=== PATIENT | female | born 1940 ===

== ENCOUNTER 2018-04-06 08:29 | Day surgery (SDC) | payer MEDICARE, OTHER ==
[~2018-04-06] VITALS: Ht 162.6 cm; Wt 80.2 kg
[~2018-04-06 08:29] MED LIST: 8 Hour C500 MG; Aspirin EC81 MG PO; ESCI10 PO; METPRE4DP PO
[2018-04-06] MEDS ORDERED: COLLAGEN HYDROLY1 GM PO (09:03)
[2018-04-06] MEDS ORDERED: CYAN500 PO (09:04)
[2018-04-06] MEDS ORDERED: CENTRUM FLAVOR1 EAC1 PO (09:04)
[2018-04-06] MEDS ORDERED: Vitamin E200 UNIT PO (09:04)
[2018-04-06] MEDS ORDERED: FISH OIL 1,0001 EAC2 PO (09:05)
[2018-04-06] MEDS ORDERED: Vitamin C100 M1 PO (09:05)
[2018-04-06] MEDS ORDERED: ZINC15 PO (09:06)
[2018-04-06] MEDS ORDERED: CHOL10002 PO (09:06)
[2018-04-06] MEDS ORDERED: CALCA400CH PO (09:06)
--- NOTE | 2018-04-06 09:23 | NUR ---
04/06/18 0923 Mari Sheridan V PT RESTING IN BED, SIDE RAILS IN PLACE, CALL LIGHT WITHIN REACH, VSS. PT'S FAMILY AT BED SIDE. PT TEACHING COMPLETED. PT DENIES PAIN, DISCOMFORT, AND QUESTIONS AT THIS TIME.
== END 2018-04-06 10:31 | disposition home or self-care (01) ==
LOC: ORSCSDS 08:29
PROVIDERS: Ophthalmology
PROC: 08RJ3JZ Replacement of Right Lens with Synthetic Substitute, Percutaneous Approach (ICD-10-PCS; principal; 2018-04-06 10:00)
DX: H25.11 Age-related nuclear cataract, right eye (principal)
CPT/HCPCS: J2001; J2250; J3010; J3301; V2632

== ENCOUNTER 2018-06-29 08:25 | Day surgery (SDC) | payer MEDICARE, SELFPAY ==
[~2018-06-29] VITALS: Ht 162.6 cm; Wt 77.8 kg
[~2018-06-29 08:25] MED LIST changes: +CALCA400CH PO; +CENTRUM FLAVOR1 EAC1 PO; +CHOL10002 PO; +COLLAGEN HYDROLY1 GM PO; +CYAN500 PO; +FISH OIL 1,0001 EAC2 PO; +Vitamin C100 M1 PO; +Vitamin E200 UNIT PO; +ZINC15 PO
== END 2018-06-29 10:44 | disposition home or self-care (01) ==
LOC: ORSCSDS 08:25
PROVIDERS: Ophthalmology
PROC: 08RK3JZ Replacement of Left Lens with Synthetic Substitute, Percutaneous Approach (ICD-10-PCS; principal; 2018-06-29 10:00)
DX: H25.12 Age-related nuclear cataract, left eye (principal)
CPT/HCPCS: J2001; J2250; J3010; J3301; V2632

== ENCOUNTER → 2022-09-28 | Outpatient (CLI) | payer OTHER | END | disposition home or self-care (01) | LOC: LAB 08:14 → LAB SHORT 08:14 | DX: D04.71 Carcinoma in situ of skin of right lower limb, including hip (principal); D04.39 Carcinoma in situ of skin of other parts of face; L57.0 Actinic keratosis | CPT/HCPCS: 88305 ==